=== PATIENT | female | born 1975 | race Caucasian/White ===

== ENCOUNTER 2021-02-04 11:54 | Emergency (ER) | payer SELFPAY ==
[~2021-02-04] VITALS: Ht 154.9 cm; Wt 56.4 kg
[2021-02-04 12:20] VITALS: BP 122/82
== END 2021-02-04 13:35 | disposition left against medical advice (07) ==
LOC: ED 13:29
DX: Z53.21 Procedure and treatment not carried out due to patient leaving prior to being seen by health care provider (principal)